=== PATIENT | female | born 1995 | race Caucasian/White ===

== ENCOUNTER 2018-10-19 10:15 | Day surgery (SDC) | payer SELFPAY ==
[2018-10-19 11:06] LABS: Amnisure Test No Membranes Rupture (No Rupture)
[2018-10-19 11:07] LABS: Amnisure Internal Control QC ACCEPTABLE (ACCEPTABLE)
--- NOTE | 2018-10-20 04:20 | SS ---
DATE OF ADMISSION: 10/19/2018 DATE OF DISCHARGE: 10/19/2018 REGULAR PROVIDER: Brenna Up CNM EVALUATING PHYSICIAN: Fernando Dotson MD CHIEF COMPLAINT: Vaginal discharge, possible leakage of fluid. HISTORY OF PRESENT ILLNESS: Ms. Knowles is a 22-year-old white G2, P1-0-0-1 with an estimated date of confinement of 11/09/2018, who presents complaining of what she thinks may be a small amount of leakage of fluid versus vaginal discharge over the last several days. She also states she has been silva approximately every 10 minutes at home. She called [facility] and she had been instructed to come here for evaluation. She denies vaginal bleeding or decreased movement. Her care has been with Brenna Up CNM. PAST OBSTETRICAL HISTORY: Includes vaginal delivery, uncomplicated at 37 weeks. PAST MEDICAL HISTORY: None. PAST SURGICAL HISTORY: None. CURRENT MEDICATIONS: vitamins. ALLERGIES: NO KNOWN ALLERGIES. SOCIAL HISTORY: Denies tobacco, alcohol, or drug use. FAMILY HISTORY: Unremarkable. REVIEW OF SYSTEMS: Denies nausea, vomiting, fever, chills, vaginal bleeding, or decreased movement. PHYSICAL EXAMINATION: VITAL SIGNS: In triage, her vital signs are stable. She is afebrile. GENERAL: She is pleasant, in no acute distress. ABDOMEN: Soft and nontender with no guarding or rebound. heart rate tracing shows spontaneous accelerations and no decelerations. Only an occasional uterine contraction is seen. PELVIC: Shows the cervix to be 2 cm dilated, slightly posterior, and approximately 40% effaced with a vertex presenting. AmniSure returns without evidence of ruptured membranes. Vaginitis panel returns positive for Gardnerella. ASSESSMENT: 1. 37-week intrauterine . 2. No evidence of ruptured membranes or active labor at the present time. 3. Bacterial vaginosis. PLAN: The patient has been discharged home with labor precautions. She was given a prescription for Flagyl 250 mg one p.o. t.i.d. for the next week. She is told to return should her contractions increase or her water breaks. She voices understanding of her discharge instructions and sent home in good condition. Job ID: [id number]
== END 2018-10-19 12:52 | disposition home or self-care (01) ==
LOC: L&D/OP 10:15
PROVIDERS: ATTEND Obstetrics & Gynecology
DX: O99.89 Other specified diseases and conditions complicating pregnancy, childbirth and the puerperium (principal); N89.8 Other specified noninflammatory disorders of vagina; O23.593 Infection of other part of genital tract in pregnancy, third trimester; B96.89 Other specified bacterial agents as the cause of diseases classified elsewhere; Z3A.37 37 weeks gestation of pregnancy; Z79.899 Other long term (current) drug therapy
CPT/HCPCS: 84112; 87480; 87510; 87660; 99284

== ENCOUNTER 2018-10-28 15:59 | Inpatient (IN) | payer SELFPAY ==
[2018-10-28] MEDS ORDERED: Misoprostol 200 MCG TAB PR PRN (16:03)
[2018-10-28] MEDS ORDERED: Lactated Ringer's 1,000 ML IV PRN (16:03)
[2018-10-28] MEDS ORDERED: HYDROcodone/Acetaminophen 5/325 mg Tablet PO PRN ×2 (16:03)
[2018-10-28] MEDS ORDERED: Ibuprofen 800 MG TAB PO PRN (16:03)
[2018-10-28] MEDS ORDERED: NS / Oxytocin 40 units/1000ml 1,000 ML IV PRN (16:03)
[2018-10-28] MEDS ORDERED: Lidocaine 1% (PF) 30 ML VIAL SC PRN (16:03)
[2018-10-28] MEDS ORDERED: Ondansetron PF 4 MG/2 ML Vial IVP PRN (16:03)
[2018-10-28] MEDS ORDERED: Promethazine HCl 25 MG/ML VIAL IM PRN (16:03)
[2018-10-28] MEDS ORDERED: Methylergonovine 0.2 MG/ML VIAL IM PRN (16:03)
[2018-10-28 17:37] VITALS: BMI 29.0
--- NOTE | 2018-10-28 18:32 | PDOC.LDHP ---
Labor and Delivery H&P Chief complaint: contractions HPI: Had starting contractions this afternoon. She came to the clinic for evaluation and was sent the L&D as she was in labor Current gestational age (weeks): 38 Dating criteria: last menstrual period Grav: 2 Para: 1 Current complications: none Abnormal US findings: No Current medications: pre- vitamins Allergies/Adverse Reactions: Allergies Allergy/AdvReac Type Severity Reaction Status Date / Time No Known Allergies Allergy Verified 10/28/18 17:23 - Physical Exam Heart: RRR Lungs: nonlabored breathing Abdomen: gravid Extremeties: no edema FHT: category 1 - Vaginal Exam cm dilated: 6 Effacement: 75% Station: -2 - OB Labs Blood type: A RH: positive Antibody Screen: negative HIV: negative RPR: negative HEPSAg: negative 1 hour GCT: negative GBS: negative Urine drug screen: negative Rubella: immune - Assessment L&D Assessment: term patient in labor - Plan Plan: admit to L&D -: P: Admit to L&D. Low intervention protocol anticipate .
[2018-10-28 18:39] LABS: Hemoglobin 12.5 g/dL (12.0-16.0); Mean Corpuscular HGB CONC 34.1 g/dL (32.0-36.0); Mean Corpuscular Hemoglobin 30.7 pg (27.0-31.0); Mean Corpuscular Volume 90.2 fL (78.0-98.0); Mean Platelet Volume 8.2 fL (7.4-10.4); Platelet Count 238 thou/uL (130-400); RBC Distribution Width 14.6 % (11.5-14.5); Red Blood Cell (RBC) Count 4.06 mill/uL (4.20-5.40); White Blood Cell (WBC) Count 11.2 thou/uL (4.8-10.8)
[2018-10-28 19:18] LABS: HBSAg Index 0.31 S/CO (0-0.99); Hep B Surf Ag Non-Reactive S/CO (NonReactive)
[2018-10-29] MEDS ORDERED: NS / Oxytocin 40 units/1000ml 1,000 ML ONE (01:17)
[2018-10-29] MEDS ORDERED: Lidocaine 1% (PF) 30 ML VIAL ONE (01:17)
--- NOTE | 2018-10-29 02:28 | PDOC.OPDEL ---
OB Operative/Delivery Note Delivery Dr/Surgeon: Flavio Up Pre-Delivery Diagnosis: active labor Procedure/Post Delivery Dx: spontaneous vaginal delivery Weeks gestation: 38 Anesthesia: none - Findings a Sex: male Weight: 7 lb - 1 min: 9 - 5 min: 9 - Additional Findings/Plan Placenta delivered: spontaneous Repaired Obstetrical Laceration: none Estimated blood loss: 50mL Post delivery plan: routine recovery
[2018-10-29] MEDS ORDERED: Bisacodyl 10 MG SUPP PR PRN ×2 (04:17)
[2018-10-29] MEDS ORDERED: HYDROcodone/Acetaminophen 5/325 mg Tablet PO PRN ×2 (04:17)
[2018-10-29] MEDS ORDERED: diphenhydrAMINE 25 MG CAP PO PRN (04:17)
[2018-10-29] MEDS ORDERED: Ondansetron PF 4 MG/2 ML Vial IVP PRN (04:17)
[2018-10-29] MEDS ORDERED: Adacel (T-DAP) 0.5 ML SYRINGE IM ONE (04:17)
[2018-10-29] MEDS ORDERED: Milk Of Magnesia 30 ML UDCUP PO PRN ×2 (04:17)
[2018-10-29] MEDS ORDERED: Misoprostol 200 MCG TAB VAG PRN (04:17)
[2018-10-29] MEDS ORDERED: Methylergonovine 0.2 MG/ML VIAL IM PRN (04:17)
[2018-10-29] MEDS ORDERED: Benzocaine-Menthol 82.5 ML CAN TOP PRN (04:17)
[2018-10-29] MEDS ORDERED: NS / Oxytocin 40 units/1000ml 1,000 ML IV SCH ×2 (04:17)
[2018-10-29] MEDS: Ibuprofen 800 MG TAB PO SCH ×3 (05:16→21:31)
[2018-10-29] MEDS ORDERED: Ferrous Sulfate 325 MG TAB PO SCH (08:00)
[2018-10-29] MEDS ORDERED: Docusate Calcium (SURFAK) 240 MG CAP PO SCH (09:00)
[2018-10-29] MEDS: Prenatal Vitamin 1 TAB PO SCH (09:24)
[2018-10-29] MEDS: Docusate Calcium (SURFAK) 240 MG CAP PO SCH ×2 (09:26→21:31)
[2018-10-29] MEDS: Ferrous Sulfate 325 MG TAB PO SCH ×2 (10:48→17:53)
--- NOTE | 2018-10-29 15:02 | PDOC.PP ---
Post Progress Note Post Day #: 1 Subjective: Doing well. is going much better than with her first kid. PO intake tolerated: yes Flatus: yes Ambulation: yes Vital Signs (12 hours) Temp Pulse Resp BP Pulse Ox 10/29/18 11:35 98.4 F 99 20 99/50 L 10/29/18 07:58 97.7 F 80 16 108/61 97 10/29/18 05:40 97.8 F 81 20 110/55 L 10/29/18 04:40 98.2 F 98 18 108/60 97 Weight Weight 164 lb - Physical Examination General: NAD Cardiovascular: no m/r/g, RRR Respiratory: non-labored breathing Abdominal: lochia, no distention Extremities: negative homans (B) Skin: no rash Neurological: no gross focal deficits Psychiatric: A&Ox3, normal affect Result Diagrams: 10/28/18 17:58 Additional Labs: Post Labs Blood Type A POSITIVE 10/28/18 17:58 Hep Bs Antigen Non-Reactive S/CO (NonReactive) 10/28/18 17:58 (1) (spontaneous vaginal delivery) Code(s): O80 - ENCOUNTER FOR FULL-TERM UNCOMPLICATED DELIVERY Status: Acute - Assessment/Plan A: G2 now P2 s/p uncomplicated , no lacerations, P: Continue Routine care Discharge home tomorrow
[2018-10-30] MEDS: Ibuprofen 800 MG TAB PO SCH ×2 (05:37→13:33)
[2018-10-30] MEDS: Docusate Calcium (SURFAK) 240 MG CAP PO SCH (09:09)
[2018-10-30] MEDS: Prenatal Vitamin 1 TAB PO SCH (09:09)
[2018-10-30] MEDS: Ferrous Sulfate 325 MG TAB PO SCH (09:10)
[2018-10-30 09:19] VITALS: BP 106/58; TEMP 97.4
== END 2018-10-30 14:05 | disposition home or self-care (01) | DRG 807 ==
LOC: L&D-LIB 15:59 → 3SW 10-29 04:57
PROVIDERS: ADMIT Obstetrics & Gynecology; ATTEND Obstetrics & Gynecology
PROC: 10E0XZZ Delivery of Products of Conception, External Approach (ICD-10-PCS; principal; 2018-10-29)
PROC: 10907ZC Drainage of Amniotic Fluid, Therapeutic from Products of Conception, Via Natural or Artificial Opening (ICD-10-PCS; 2018-10-29)
DX: O80 Encounter for full-term uncomplicated delivery (principal); Z37.0 Single live birth; Z3A.38 38 weeks gestation of pregnancy
CPT/HCPCS: 85027; 86850; 86900; 86901; 87340; J2001

== ENCOUNTER 2020-05-15 16:15 | Inpatient (IN) | payer OTHER ==
[2020-05-15] MEDS ORDERED: Promethazine HCl 25 MG/ML VIAL IM PRN (17:00)
[2020-05-15] MEDS ORDERED: Ibuprofen 800 MG TAB PO PRN (17:00)
[2020-05-15] MEDS ORDERED: NS / Oxytocin 40 units/1000ml 1,000 ML IV PRN (17:00)
[2020-05-15] MEDS ORDERED: Lidocaine 1% (PF) 30 ML VIAL SC PRN (17:00)
[2020-05-15] MEDS ORDERED: hydrALAZINE 20 MG/ML VIAL SLOW IVP PRN ×2 (17:00→20:40)
[2020-05-15] MEDS ORDERED: Misoprostol 200 MCG TAB PR PRN (17:00)
[2020-05-15] MEDS ORDERED: Ondansetron PF 4 MG/2 ML Vial IVP PRN (17:00)
[2020-05-15] MEDS ORDERED: HYDROcodone/Acetaminophen 5/325 mg Tablet PO PRN ×4 (17:00→20:40)
[2020-05-15 17:10] VITALS: BMI 29.2
[2020-05-15 17:27] LABS: Hemoglobin 12.8 g/dL (12.0-16.0); Mean Corpuscular HGB CONC 33.7 g/dL (32.0-36.0); Mean Corpuscular Hemoglobin 31.3 pg (27.0-31.0); Mean Corpuscular Volume 92.7 fL (78.0-98.0); Platelet Count 187 thou/uL (130-400); RBC Distribution Width 13.9 % (11.5-14.5); White Blood Cell (WBC) Count 9.7 thou/uL (4.8-10.8)
[2020-05-15] MEDS ORDERED: Lidocaine 1% (PF) 30 ML VIAL ONE (17:57)
[2020-05-15] MEDS ORDERED: NS / Oxytocin 40 units/1000ml 1,000 ML ONE (17:58)
[2020-05-15] MEDS ORDERED: Lactated Ringer's 1,000 ML IV PRN (18:00)
[2020-05-15 18:05] LABS: HBSAg Index 0.13 S/CO (0-0.99); Hep B Surf Ag Non-Reactive S/CO (NonReactive)
[2020-05-15 18:25] LABS: Syphilis Antibody Nonreactive (Nonreactive); Syphilis Antibody Index 0.03 S/CO (<1.00 Non-Reactive)
--- NOTE | 2020-05-15 18:36 | PDOC.LDHP ---
Labor and Delivery H&P Chief complaint: contractions HPI: Pt started contraction this afternoon around 1400 Current gestational age (weeks): 38 (6 days) Dating criteria: last menstrual period Grav: 3 Para: 2 OB History Details: x 2 uncomplicated Current complications: none Current medications: pre-primitivo vitamins Allergies/Adverse Reactions: Allergies Allergy/AdvReac Type Severity Reaction Status Date / Time No Known Allergies Allergy Verified 10/28/18 17:23 Social history: none - Physical Exam Vital signs reviewed and normal: yes General: breathing through contractions Heart: RRR Lungs: nonlabored breathing Abdomen: gravid - Vaginal Exam cm dilated: 8 Effacement: 100% Station: 0 - OB Labs Blood type: A RH: positive Antibody Screen: negative HIV: negative RPR: negative HEPSAg: negative 1 hour GCT: negative GBS: negative Urine drug screen: negative Rubella: immune - Assessment L&D Assessment: term patient in labor - Plan Plan: admit to L&D, informed consent obtained
--- NOTE | 2020-05-15 18:41 | PDOC.OPDEL ---
OB Operative/Delivery Note Delivery Dr/Surgeon: Annel Pre-Delivery Diagnosis: active labor Procedure/Post Delivery Dx: spontaneous vaginal delivery Weeks gestation: 38 Anesthesia: none - Findings A Sex: male Weight: 7 lb 12 oz - 1 min: 2 - 5 min: 8 - Additional Findings/Plan Placenta delivered: spontaneous Repaired Obstetrical Laceration: none Compilations/Other Findings: Infant was cyanotic and no tone at delivery. Cord was doubly clamped and cut. Handed off the awaiting nursery nurse. Instructed nursery nurse to call for keri. Post delivery plan: routine recovery
[2020-05-15] MEDS ORDERED: Adacel (T-DAP) 0.5 ML SYRINGE IM ONE (20:40)
[2020-05-15] MEDS ORDERED: Benzocaine-Menthol 82.5 ML CAN TOP PRN (20:40)
[2020-05-15] MEDS ORDERED: Bisacodyl 10 MG SUPP PR PRN (20:40)
[2020-05-15] MEDS ORDERED: Milk Of Magnesia 30 ML UDCUP PO PRN (20:40)
[2020-05-15] MEDS ORDERED: NS / Oxytocin 40 units/1000ml 1,000 ML IV SCH (20:40)
[2020-05-15] MEDS: Ibuprofen 800 MG TAB PO SCH (21:52)
[2020-05-15] MEDS: Docusate Calcium (SURFAK) 240 MG CAP PO SCH (21:52)
[2020-05-16] MEDS: Ibuprofen 800 MG TAB PO SCH (05:56)
[2020-05-16] MEDS ORDERED: Ferrous Sulfate 325 MG TAB PO SCH (08:00)
[2020-05-16] MEDS ORDERED: Prenatal Vitamin 1 TAB PO SCH (09:00)
[2020-05-16] MEDS ORDERED: FLU VACC QS2020-21(6MOS UP)/PF 60 MCG/0.5 ML SYRINGE IM ONE (09:00)
[2020-05-16] MEDS: Docusate Calcium (SURFAK) 240 MG CAP PO SCH (09:24)
[2020-05-16 16:07] LABS: SARS-CoV-2 MS2 Positive; SARS-CoV-2 N Gene Negative; SARS-CoV-2 S Gene Negative; SARS-CoV-2 by NAA Not Detected (NotDetected); SARS-CoV-2 orf1ab Negative
== END 2020-05-16 16:28 | disposition home or self-care (01) | DRG 807 ==
LOC: L&D/OP 16:15 → L&D 19:07 → L&D-LIB 05-16 14:25
PROVIDERS: ADMIT Obstetrics & Gynecology; ATTEND Obstetrics & Gynecology
PROC: 10E0XZZ Delivery of Products of Conception, External Approach (ICD-10-PCS; principal; 2020-05-15)
PROC: 10907ZC Drainage of Amniotic Fluid, Therapeutic from Products of Conception, Via Natural or Artificial Opening (ICD-10-PCS; 2020-05-15)
DX: O69.81X0 Labor and delivery complicated by cord around neck, without compression, not applicable or unspecified (principal); Z37.0 Single live birth; Z3A.38 38 weeks gestation of pregnancy; Z20.828 Contact with and (suspected) exposure to other viral communicable diseases
CPT/HCPCS: 36415; 85027; 86780; 86850; 86900; 86901; 87340; 87635; 99285; J2001; U0003